=== PATIENT | female | born 1935 | race Caucasian/White ===

== ENCOUNTER 2018-03-11 15:00 | Emergency (ER) | payer MEDICARE, OTHER ==
[~2018-03-11] VITALS: Ht 152.4 cm; Wt 68.0 kg
[~2018-03-11 15:00] MED LIST: ACETAMINOPHEN; ASPI81CH43 PO; CALCTAB34 PO; CETI10CH3 OR; DOCU50CA2 OR; ESCI10TA OR; LEV063IS NEB; MOEX15TA OR; MOME220A IN; NAS17NSL; PSYL0.524 OR; TRIA25CA OR; [UNRECOGNIZED DRUG - OTHER]; [UNRECOGNIZED DRUG - OTHER] PO
[2018-03-11 15:11] VITALS: BP 147/73
== END 2018-03-11 19:53 | disposition left against medical advice (07) ==
LOC: ER 15:11
DX: S81.812A Laceration without foreign body, left lower leg, initial encounter (principal); Z53.21 Procedure and treatment not carried out due to patient leaving prior to being seen by health care provider; W20.8XXA Other cause of strike by thrown, projected or falling object, initial encounter; Y93.89 Activity, other specified; Y99.8 Other external cause status; Y92.89 Other specified places as the place of occurrence of the external cause

== ENCOUNTER 2019-11-25 06:04 | Day surgery (SDC) | payer MEDICARE, OTHER ==
[2019-11-23 10:50] LABS: Basophils # (auto) 0 10 ^3/uL (0-0.2); Basophils % (auto) 0.7 % (0.0-2.0); Eosinophils # (auto) 0.2 10 ^3/uL (0-0.8); Eosinophils % (auto) 3.1 % (0.0-7.0); Hematocrit 36.1 % (36.0-46.0); Lymphocytes # (auto) 1.4 10 ^3/uL (0.4-5.4); Lymphocytes % (auto) 22.1 % (10.0-50.0); Mean Corpuscular Hemoglobin 27.6 pg (28.0-32.0); Mean Corpuscular Hgb Conc. 33.2 g/dL (32.0-36.0); Mean Corpuscular Volume 83.4 fL (80.0-100.0); Monocytes # (auto) 0.6 10 ^3/uL (0-1.3); Monocytes % (auto) 8.8 % (0.0-12.0); Neutrophils # (auto) 4.1 10 ^3/uL (1.6-8.6); Neutrophils % (auto) 65.3 % (37.0-80.0); Nucleated Red Blood Cells % 0.1 %; Platelet Count (auto) 272 10^3/uL (140-450); Red Blood Cells 4.33 10^6/uL (4.0-5.20); Red Cell Distribution Width 15.3 % (11.8-14.3); White Blood Cell 6.3 10^3/uL (4.4-10.8)
[2019-11-23 10:53] LABS: Urine Bacteria NONE SEEN /hpf (None Seen); Urine Blood Negative /uL (Negative); Urine Hyaline Cast FEW /lpf (0 - 2); Urine Mucus FEW (None Seen); Urine Specific Gravity 1.021 (1.001-1.035); Urine WBC <1 /hpf (0 - 5)
[2019-11-23 11:08] LABS: INR 0.98 (0.9-1.15); Partial Thromboplastin Time 25.8 sec (23.64-32.05)
[2019-11-23 11:13] LABS: Potassium 3.8 mmol/L (3.5-5.1)
[2019-11-23 11:50] LABS: Albumin 3.6 g/dL (3.4-5.0); BUN/Creatinine Ratio 33.3; Bilirubin, Total 0.5 mg/dL (0.2-1.0); Calcium 8.8 mg/dL (8.5-10.1); Total Protein 7.1 g/dL (6.4-8.2)
[~2019-11-25] VITALS: Ht 152.4 cm; Wt 70.3 kg
[~2019-11-25 06:04] MED LIST changes: +ACET-1080 PO; -ACETAMINOPHEN; -ASPI81CH43 PO; +ATOR10TA52 PO; +CALC-425 PO; -CALCTAB34 PO; -DOCU50CA2 OR; +HYDR25TA4 PO; -LEV063IS NEB; +LEVAAER IN; -MOEX15TA OR; +MOEX15TA PO; -MOME220A IN; +MULTTAB PO; -NAS17NSL; +PANT40TA2 PO; -TRIA25CA OR; +UMEC1AER IN; -[UNRECOGNIZED DRUG - OTHER]; -[UNRECOGNIZED DRUG - OTHER] PO
[2019-11-25] MEDS ORDERED: ceFAZolin 1GM/50ML 50 ML IV ONE (08:43)
[2019-11-25] MEDS ORDERED: SUCCINYLCHOLINE CHLORIDE 20 MG/ML 10ML VIAL IV ONE (09:25)
[2019-11-25] MEDS ORDERED: LIDOCAINE 1% (LOCAL ANESTH.) PF 5ml SDV ONE ×2 (09:25→11:09)
[2019-11-25] MEDS ORDERED: MIDAZOLAM HCL 1MG/1ML-2 ML VIAL ONE (09:45)
[2019-11-25] MEDS ORDERED: ETOMIDATE (2MG/ML) 20ML VIAL IV ONE (09:47)
[2019-11-25] MEDS ORDERED: ROCURONIUM 10MG/ML 10ML VIAL IV ONE (09:48)
[2019-11-25] MEDS ORDERED: STERILE WATER 10 ML ONE (10:10)
[2019-11-25] MEDS ORDERED: ePHEDrine SULFATE 50 MG/ML AMP ONE (10:10)
[2019-11-25] MEDS ORDERED: fentaNYL CITRATE 100 MCG/2 ML VL ONE (10:17)
[2019-11-25] MEDS ORDERED: NEOSTIGMINE 1 MG/ML INJ (10mg/10ML VIAL) ONE (11:11)
[2019-11-25] MEDS ORDERED: GLYCOPYRROLATE 0.2 MG/ML 1ML VIAL ONE (11:11)
[2019-11-25 12:11] VITALS: BP 106/54
[2019-11-25] MEDS ORDERED: ONDANSETRON HCL 4 MG/2 ML VIAL IV PRN (12:15)
[2019-11-25] MEDS ORDERED: HYDROmorphone HCL 2 MG/ML VL IV PRN (12:15)
[2019-11-25] MEDS ORDERED: NALOXONE HCL 0.4 MG/ML VIAL IV PRN (12:15)
== END 2019-11-25 12:27 | disposition home or self-care (01) ==
LOC: SUR 06:04
PROVIDERS: ATTEND Orthopaedic Surgery
DX: M75.101 Unspecified rotator cuff tear or rupture of right shoulder, not specified as traumatic (principal); M19.90 Unspecified osteoarthritis, unspecified site; I10 Essential (primary) hypertension; J44.9 Chronic obstructive pulmonary disease, unspecified; E66.01 Morbid (severe) obesity due to excess calories; G89.29 Other chronic pain; F32.9 Major depressive disorder, single episode, unspecified; Z11.59 Encounter for screening for other viral diseases; Z88.2 Allergy status to sulfonamides
CPT/HCPCS: 23076; 23180; 23412; 24140; 36415; 80053; 81001; 85025; 85610; 85730; 88305; J0330; J0690; J2250; J3010; U0003